=== PATIENT | female | born 1980 | race Caucasian/White ===

== ENCOUNTER 2018-08-01 21:43 | Outpatient (CLI) | payer OTHER ==
[2018-08-01 22:27] LABS: APPEARANCE,URINE CLEAR; BILIRUBIN,URINE NEGATIVE (NEGATIVE); COLOR,URINE STRAW; GLUCOSE, URINE NEGATIVE (NEGATIVE); KETONES,URINE NEGATIVE (NEGATIVE); LEUKOCYTE ESTERASE,URINE NEGATIVE (NEGATIVE); NITRITE,URINE NEGATIVE (NEGATIVE); PROTEIN,URINE NEGATIVE (NEGATIVE); URINE SPECIFIC GRAVITY 1.002; UROBILINOGEN,URINE NEGATIVE mg/dL (<2.0)
[2018-08-01 22:59] LABS: URINE AMPHETAMINES SCREEN NEGATIVE; URINE BARBITURATES SCREEN NEGATIVE; URINE BENZODIAZEPINES SCREEN NEGATIVE; URINE COCAINE SCREEN NEGATIVE; URINE MARIJUANA (THC) SCREEN NEGATIVE; URINE METHADONE SCREEN NEGATIVE; URINE PHENCYCLIDINE SCREEN NEGATIVE
== END 2018-08-01 23:54 | disposition home or self-care (01) ==
LOC: LC 21:43
PROVIDERS: ATTEND Obstetrics & Gynecology
PROC: 4A1HXCZ Monitoring of Products of Conception, Cardiac Rate, External Approach (ICD-10-PCS; principal; 2018-08-01)
DX: O47.03 False labor before 37 completed weeks of gestation, third trimester (principal); O09.523 Supervision of elderly multigravida, third trimester; Z3A.32 32 weeks gestation of pregnancy
CPT/HCPCS: 59025; 80307; 81001

== ENCOUNTER 2018-08-14 11:30 | Outpatient (CLI) | payer OTHER ==
--- NOTE | 2018-08-14 11:33 | Non Stress Test Report ---
Non Stress Test Datetime Report Generated by CPN: 08/14/2018 11:33 DEMOGRAPHIC EGA NST: 32.3 INDICATION Indication for Study: Ordered by Provider MONITORING Monitor Explained: Monitor Explained; Test Explained; Patient Verbalized Understanding Time on Monitor: 08/01/2018 21:58 Time off Monitor: 08/01/2018 22:36 NST Duration: 38 NST INTERVENTIONS NST Interventions: PO Hydration Physician Notified NST: Dr. Harish BABY A: [id number] BABY A Movement : Present Contraction Frequency : no ctx FHR Baseline : 135 Accelerations : 15X15 Decelerations : None Variability : Moderate 6-25bpm NST Review: Meets Criteria for Reactive NST NST Review and Verified By : Priya RN NST Results: Reactive NST REPORT Report Trigger: Send Report
[2018-08-14 12:07] LABS: APPEARANCE,URINE CLEAR; BILIRUBIN,URINE NEGATIVE (NEGATIVE); COLOR,URINE YELLOW; GLUCOSE, URINE NEGATIVE (NEGATIVE); KETONES,URINE TRACE mg/dL (NEGATIVE); LEUKOCYTE ESTERASE,URINE NEGATIVE (NEGATIVE); NITRITE,URINE NEGATIVE (NEGATIVE); PROTEIN,URINE NEGATIVE (NEGATIVE); URINE SPECIFIC GRAVITY 1.005; UROBILINOGEN,URINE NEGATIVE mg/dL (<2.0)
[2018-08-14 12:23] LABS: URINE AMPHETAMINES SCREEN NEGATIVE; URINE BARBITURATES SCREEN NEGATIVE; URINE BENZODIAZEPINES SCREEN NEGATIVE; URINE COCAINE SCREEN NEGATIVE; URINE MARIJUANA (THC) SCREEN NEGATIVE; URINE METHADONE SCREEN NEGATIVE; URINE PHENCYCLIDINE SCREEN NEGATIVE
--- NOTE | 2018-08-14 12:54 | Non Stress Test Report ---
Non Stress Test Datetime Report Generated by CPN: 08/14/2018 12:54 DEMOGRAPHIC EGA NST: 34.2 INDICATION Indication for Study: Premature Rupture of Membranes MONITORING Monitor Explained: Monitor Explained; Test Explained; Patient Verbalized Understanding Time on Monitor: 08/14/2018 11:45 Time off Monitor: 08/14/2018 12:12 NST Duration: 27 NST INTERVENTIONS NST Interventions: PO Hydration Physician Notified NST: A. Fry, CNM BABY A Movement : Present Contraction Frequency : 0 FHR Baseline : 130 Accelerations : 15X15 Decelerations : None Variability : Moderate 6-25bpm NST Review: Meets Criteria for Reactive NST NST Review and Verified By : MARSHA Fry Results: Reactive NST REPORT Report Trigger: Send Report
== END 2018-08-14 12:45 | disposition home or self-care (01) ==
LOC: LC 11:30
PROVIDERS: ATTEND Obstetrics & Gynecology
PROC: 4A1HXCZ Monitoring of Products of Conception, Cardiac Rate, External Approach (ICD-10-PCS; principal; 2018-08-14)
DX: O42.013 Preterm premature rupture of membranes, onset of labor within 24 hours of rupture, third trimester (principal); O09.523 Supervision of elderly multigravida, third trimester; Z3A.34 34 weeks gestation of pregnancy
CPT/HCPCS: 59025; 80307; 81001; 84112

== ENCOUNTER 2018-09-18 05:12 | Inpatient (IN) | payer OTHER ==
[2018-09-15 12:11] LABS: APPEARANCE,URINE CLEAR; BILIRUBIN,URINE NEGATIVE (NEGATIVE); COLOR,URINE YELLOW; GLUCOSE, URINE 50 mg/dL (NEGATIVE); KETONES,URINE TRACE mg/dL (NEGATIVE); LEUKOCYTE ESTERASE,URINE TRACE (NEGATIVE); NITRITE,URINE NEGATIVE (NEGATIVE); PROTEIN,URINE NEGATIVE (NEGATIVE); URINE SPECIFIC GRAVITY 1.019; UROBILINOGEN,URINE NEGATIVE mg/dL (<2.0)
[2018-09-15 12:32] LABS: URINE AMPHETAMINES SCREEN NEGATIVE; URINE BARBITURATES SCREEN NEGATIVE; URINE BENZODIAZEPINES SCREEN NEGATIVE; URINE COCAINE SCREEN NEGATIVE; URINE MARIJUANA (THC) SCREEN NEGATIVE; URINE METHADONE SCREEN NEGATIVE; URINE PHENCYCLIDINE SCREEN NEGATIVE
[2018-09-16 11:40] LABS: ABSOLUTE EOSINOPHILS # (AUTO) 0.1 10^3/uL (0.0-0.6); ABSOLUTE LYMPHOCYTES (AUTO) 1.6 10^3/uL (0.5-4.7); ABSOLUTE MONOCYTES (AUTO) 0.6 10^3/uL (0.1-1.4); ABSOLUTE NEUT (AUTO) 5.9 10^3/uL (1.7-8.2); BASOPHILS % (AUTO) 0.3 % (0-2); EOSINOPHILS % (AUTO) 0.6 % (0-6); HEMATOCRIT 34.2 % (36.0-47.0); HEMOGLOBIN 11.8 g/dL (12.0-15.5); MEAN CORPUSCULAR HEMOGLOBIN 31.5 pg (27.0-33.4); MEAN CORPUSCULAR HGB CONC 34.4 g/dL (32.0-36.0); MEAN CORPUSCULAR VOLUME 91 fl (80-97); MONOCYTES % (AUTO) 6.8 % (3-13); PLATELET COUNT 269 10^3/uL (150-450); RED BLOOD COUNT 3.75 10^6/uL (3.72-5.28); RED CELL DISTRIBUTION WIDTH 12.7 % (11.5-14.0); SEGMENTED NEUTROPHILS % (AUTO) 72.3 % (42-78); TOTAL CELLS COUNTED % (AUTO) 100 %; WHITE BLOOD COUNT 8.1 10^3/uL (4.0-10.5)
[2018-09-18] MEDS ORDERED: CEFAZOLIN 1 GM/D5W RTU 1 GM/50 ML RTUPB IV PRN (05:40)
[2018-09-18] MEDS ORDERED: LACTATED RINGERS 1000 ML IV PRN (05:43)
[2018-09-18] MEDS ORDERED: LIDOCAINE 0.5% INJ-PF (5 MG/ML) 50 ML SDV SUBCUT PRN (05:43)
[2018-09-18] MEDS ORDERED: CLINDAMYCIN 900 MG/D5W RTU 900 MG/50 ML RTUPB IV ONE (05:45)
[2018-09-18] MEDS ORDERED: RINGERS SOLUTION,LACTATED 2,000 ML IV ONE (05:45)
[2018-09-18] MEDS ORDERED: KETAMINE HCL INJ 500 MG/10 ML VIAL ONE (06:57)
[2018-09-18] MEDS ORDERED: OXYTOCIN 10 UNIT/ML VIAL ONE (07:14)
[2018-09-18] MEDS ORDERED: OXYTOCIN/NORMAL SALINE 0 UNIT/0 ML RTUINJ ONE (07:15)
[2018-09-18] MEDS ORDERED: MIDAZOLAM 2 MG/2 ML INJ ONE (07:15)
[2018-09-18] MEDS ORDERED: ACETAMINOPHEN 1,000 MG/100 ML RTUPB IV ONE (07:15)
[2018-09-18] MEDS ORDERED: FENTANYL CITRATE INJ/PF 100 MCG/2 ML AMPUL ONE (07:15)
[2018-09-18] MEDS ORDERED: EPHEDRINE SULFATE INJ 50 MG/1 ML AMPULE ONE (07:15)
[2018-09-18] MEDS ORDERED: KETOROLAC TROMETHAMINE INJ/PF 30 MG/1 ML SDV ONE (07:15)
[2018-09-18] MEDS ORDERED: ONDANSETRON HCL INJ/PF 4 MG/2 ML SDV ONE (07:15)
[2018-09-18] MEDS ORDERED: DIPHENHYDRAMINE HCL 50 MG/ML VIAL IV PRN (08:02)
[2018-09-18] MEDS ORDERED: FENTANYL CITRATE INJ/PF 100 MCG/2 ML AMPUL IV PRN ×3 (08:02)
[2018-09-18] MEDS ORDERED: ONDANSETRON HCL INJ/PF 4 MG/2 ML SDV IV PRN (08:02)
[2018-09-18] MEDS ORDERED: MEPERIDINE HCL/PF INJ 25 MG/1 ML DISP.SYRIN IV PRN (08:02)
[2018-09-18] MEDS ORDERED: PROMETHAZINE HCL INJ 25 MG/1 ML VIAL IV PRN ×2 (08:02→08:20)
[2018-09-18] MEDS ORDERED: MORPHINE SULFATE 10 MG/ML INJ IM PRN (08:20)
[2018-09-18] MEDS ORDERED: ACETAMINOPHEN 325 MG TABLET PO PRN (08:20)
[2018-09-18] MEDS ORDERED: MEASLES,MUMPS&RUBELLA VACC/PF 0.5 ML VIAL SUBCUT PRN (08:20)
[2018-09-18] MEDS ORDERED: OXYTOCIN/NORMAL SALINE 20 UNIT/1,000 ML RTUINJ IV PRN (08:20)
[2018-09-18] MEDS ORDERED: OXYCODONE-ACETAMINOPHEN 5-325 MG TABLET PO PRN (08:20)
[2018-09-18] MEDS ORDERED: DIPH/PERTUSS(ACELL)/TETANUS VAC/PF 0.5 ML SYR (>=10YO) IM PRN (08:20)
[2018-09-18] MEDS ORDERED: ACETAMINOPHEN 1,000 MG/100 ML RTUPB IV PRN (08:20)
--- NOTE | 2018-09-18 08:23 | PDOC DELIVERY SUMMARY ---
Delivery Summary - Maternal Hx : V Hx # Term Pregnancies: 1 Hx # Pregnancies: 1 Hx Total # of Abortions (Sponateous & Elective): 3 LEONORA: 09/23/18 Gestational Age: 39+2 Ruptured Membranes: AROM Time of Rupture: 07:55 Fluids: Clear - Delivery Labor: Not In Labor Presentation: Vertex Heart Rate Monitoring: Done Pre-Operatively Uterine Contraction Monitoring: External Support Person Present: Yes Location: LD : Scheduled Placenta: Within Normal Limits Nuchal Cord: Yes Delivery of Placenta Date: 09/18/18 Delivery of Placenta Time: 07:56 - Medications Type of Anesthesia:: Spinal - Assess and Care Baby 1 Female Delivery of Infant Date: 09/18/18 Delivery of Infant Time: 07:56 Preprinted Number On Band: [id number] Skin to Skin: No To Nursery At: 08:02 Mode of Transport: Bassinet - Delivery Personnel Tool And Production Planner: ANGELO AVALOS Nursekleber RN: SYD CRUM Nursekleber RN: LITA ARVIZU RN: JAZ LOYA MD: ALMA CHOUDHARY
[2018-09-18] MEDS ORDERED: MORPHINE SULFATE 10 MG/ML INJ ONE ×2 (09:30→09:55)
[2018-09-18] MEDS ORDERED: OXYTOCIN/NORMAL SALINE 20 UNIT/1,000 ML RTUINJ ONE (09:31)
[2018-09-18] MEDS: MORPHINE SULFATE 10 MG/ML INJ IV PRN ×2 (09:37→09:59)
--- NOTE | 2018-09-18 09:49 | OPERATIVE REPORT E ---
Operative Report NAME: SHANE GARCIA : 1980 AGE: 38Y DATE OF SURGERY: 09/18/2018 ROOM: 215 PREOPERATIVE DIAGNOSES: 1. INTRAUTERINE AT TERM. 2. PRIOR SECTION. 3. DESIRE FOR STERILIZATION. POSTOPERATIVE DIAGNOSES: 1. INTRAUTERINE AT TERM. 2. PRIOR SECTION. 3. DESIRE FOR STERILIZATION. OPERATION: Repeat low-transverse with delivery of viable female, 6 pounds 14 ounces, Apgars of 9 and 9 and bilateral tubal occlusion using Filshie clips. SURGEON: Gilberto CHOUDHARY M.D. ANESTHESIA: Spinal. ESTIMATED BLOOD LOSS: Less than 800 mL. TISSUE REMOVED: Placenta. PROCEDURE: The patient was placed in a supine position prepped and draped in the usual sterile fashion. The Pfannenstiel incision was made through an existing Pfannenstiel eschar. The incision extended through the subcutaneous tissue and fascia with sharp dissection. Fascia was sharply divided. Rectus muscle was bluntly and sharply divided. Parietal peritoneum was entered with sharp dissection. The uterus was nicked in the midline and extended bilaterally. was then delivered through uterine abdominal incision. The cord was clamped, was passed from the table. The placenta was then manually extracted. The uterus was closed in 2 layers, the first a running stitch of 0 Vicryl and the second a Lembert stitch imbricating the first layer. Two areas of bleeding were noted and were controlled with [id number] sutures of 0-Vicryl. The right fallopian tube was then occluded in the proximal portion with a good purchase of tissue being noted. The procedure was repeated on the left. Both tubes were identified to the fimbria prior to and after occlusion. Hemostasis was again noted. The fascia was then closed with 0 Vicryl and the skin was closed with subcutaneous absorbable rebecca. Patient tolerated it well and was taken to recovery in good condition. went to nursery in good condition. DICTATING PHYSICIAN: Gilberto CHOUDHARY M.D. [id number] PHY#: [id number] ID: [id number] JOB#: [id number] ACCT: [id number] cc:Gilberto CHOUDHARY M.D. >
[2018-09-18] MEDS: OXYCODONE-ACETAMINOPHEN 5-325 MG TABLET PO PRN ×3 (10:56→20:36)
[2018-09-18] MEDS ORDERED: MORPHINE SULFATE 10 MG/ML INJ IV ONE (12:00)
[2018-09-18] MEDS ORDERED: KETOROLAC TROMETHAMINE INJ/PF 30 MG/1 ML SDV IV SCH (14:00)
[2018-09-18] MEDS: KETOROLAC TROMETHAMINE INJ/PF 30 MG/1 ML SDV IV SCH ×2 (14:14→22:50)
[2018-09-18] MEDS: PRENATAL VITAMIN W DHA CAPSULE PO SCH (16:41)
[2018-09-18] MEDS: DOCUSATE SODIUM 100 MG CAPSULE PO SCH ×2 (16:41→18:38)
[2018-09-19] MEDS: KETOROLAC TROMETHAMINE INJ/PF 30 MG/1 ML SDV IV SCH (05:20)
[2018-09-19] MEDS: OXYCODONE-ACETAMINOPHEN 5-325 MG TABLET PO PRN ×2 (08:05→15:26)
[2018-09-19] MEDS: DOCUSATE SODIUM 100 MG CAPSULE PO SCH ×2 (10:08→17:38)
[2018-09-19] MEDS: PRENATAL VITAMIN W DHA CAPSULE PO SCH (10:08)
[2018-09-19] MEDS: SIMETHICONE 80 MG TAB.CHEW PO PRN ×3 (10:08→23:13)
--- NOTE | 2018-09-19 11:01 | PDOC PROGRESS REPORT ---
Subjective-OB Progress Note for:: 09/19/18 Subjective: reports bleeding slowing,pain controlled with current meds, denies needs. states she is not passing gas yet Physical Exam (OB) Vital Signs: Temp Pulse Resp BP Pulse Ox 98.5 F 67 18 108/58 L 99 09/19/18 07:39 09/19/18 07:39 09/19/18 07:39 09/19/18 07:39 09/19/18 07:39 Intake & Output 09/18/18 09/19/18 09/20/18 06:59 06:59 06:59 Intake Total 800 Output Total 1000 Balance -200 - Dressing Removed: No - clean dry and intact Incision: Dressing - Abdomen Description: Tender, Soft, Round Hernia Present: No Fundal Description: Firm, Midline Fundal Height: u/u - u/2 - Abdominal Inspection: Normal - bowel sounds hyperactive Distension: No distension - Extremities Calf: Normal, Nontender Objective-Diagnostic Laboratory: 09/16/18 11:05 Assessment and Plan(PN) - Assessment and Plan (1) Encounter for sterilization Is this a current diagnosis for this admission?: Yes (2) S/P repeat low transverse Is this a current diagnosis for this admission?: Yes - Time Spent with Patient Time with patient: Less than 15 minutes Medications reviewed and adjusted accordingly: Yes - Disposition Anticipated Discharge: Home Within: within 24 hours
[2018-09-19] MEDS: IBUPROFEN 800 MG TABLET PO SCH ×3 (12:46→23:10)
[2018-09-20] MEDS: IBUPROFEN 800 MG TABLET PO SCH ×2 (05:03→11:12)
[2018-09-20] MEDS: OXYCODONE-ACETAMINOPHEN 5-325 MG TABLET PO PRN (07:38)
[2018-09-20] MEDS: PRENATAL VITAMIN W DHA CAPSULE PO SCH (09:18)
[2018-09-20] MEDS: DOCUSATE SODIUM 100 MG CAPSULE PO SCH (09:18)
--- NOTE | 2018-09-20 09:37 | PDOC DISCHARGE SUMMARY ---
Final Diagnosis Discharge Date: 09/20/18 - POD #2, doing well, desires to go home today. s/p Rpt w/ BTL. O+, Rubella Immune, - Final Diagnosis (1) Normal course Is this a current diagnosis for this admission?: Yes (2) Encounter for sterilization Is this a current diagnosis for this admission?: Yes (3) S/P repeat low transverse Is this a current diagnosis for this admission?: Yes Discharge Data - Discharge Medication Prescriptions: Ibuprofen [Motrin 800 mg Tablet] 800 mg PO Q6 #60 tablet Oxycodone HCl/Acetaminophen [Percocet 5-325 mg Tablet] 1 tab PO Q4HP PRN #30 tablet PRN Reason: Home Medications: Pnv 102/Iron/Folate 1/Dss/Dha [Vitafol Fe+ Docusate Combo Pck] 1 tab PO DAILY 08/01/18 Ibuprofen [Motrin 800 mg Tablet] 800 mg PO Q6 #60 tablet 09/20/18 Oxycodone HCl/Acetaminophen [Percocet 5-325 mg Tablet] 1 tab PO Q4HP PRN #30 tablet 09/20/18 Reason(s) for Admission: Ceasarean Section-Repeat, Tubal Ligation Procedures: Ultrasound Intrapartum Procedure(s): : Low Cervical, Transverse - Diagnosis Test Laboratory: Temp Pulse Resp BP Pulse Ox 98.4 F 77 16 118/67 98 09/20/18 08:52 09/20/18 08:52 09/20/18 08:52 09/20/18 08:52 09/20/18 08:52 09/15/18 09/16/18 11:32 11:05 RBC 3.75 Hgb 11.8 L Hct 34.2 L Urine Opiates Screen NEGATIVE - Discharge information/Instructions Discharge Activity: Activity As Tolerated, No Driving, No Lifting Over 10 Pounds, Pelvic Rest Discharge Diet: As Tolerated, Regular Disposition: HOME, SELF-CARE Follow up with: [facility] in: 1, Weeks
[2018-09-20 10:30] VITALS: BP 116/71
== END 2018-09-20 13:00 | disposition home or self-care (01) | DRG 785 ==
LOC: 2S 05:12
PROVIDERS: ADMIT Obstetrics & Gynecology Gynecology; ATTEND Obstetrics & Gynecology Gynecology
PROC: 0UL70CZ Occlusion of Bilateral Fallopian Tubes with Extraluminal Device, Open Approach (ICD-10-PCS; 2018-09-18)
PROC: 10D00Z1 Extraction of Products of Conception, Low, Open Approach (ICD-10-PCS; principal; 2018-09-18 07:45)
DX: O34.211 Maternal care for low transverse scar from previous cesarean delivery (principal); Z30.2 Encounter for sterilization; Z37.0 Single live birth
CPT/HCPCS: 1961; 36415; 59025; 80307; 81001; 85025; 86850; 86900; 86901; 94799; J0131; J1885; J2250; J2270; J2405; J2590; J3010; J3490; J7120